=== PATIENT | male | born 1975 | race Caucasian/White ===

== ENCOUNTER 2017-04-18 10:14 | Emergency (ER) | payer SELFPAY ==
[~2017-04-18] VITALS: Ht 165.1 cm; Wt 70.3 kg
[2017-04-18 10:21] VITALS: BP 139/90
[2017-04-18 10:57] LABS: BASOPHILS # (AUTO) 0.1 /CMM (0.0-0.2); BASOPHILS % (AUTO) 0.5 % (0.0-2.0); EOSINOPHILS # (AUTO) 0.2 /CMM (0.0-0.7); EOSINOPHILS % (AUTO) 2.2 % (0.0-6.0); HEMATOCRIT 35 % (39-51); HEMOGLOBIN 11.7 g/dL (13.5-17.5); LYMPHOCYTES % (AUTO) 19.9 % (20.0-44.0); MEAN CORPUSCULAR HEMOGLOBIN 28 PG (26.0-33.0); MEAN CORPUSCULAR HGB CONC 33 g/dl (31.0-36.0); MEAN CORPUSCULAR VOLUME 85 fL (80-96); MONOCYTES # (AUTO) 0.6 /CMM (0.1-1.30); MONOCYTES % (AUTO) 6.2 % (2.0-12.0); NEUTROPHILS # (AUTO) 7.3 /CMM (1.8-8.9); NEUTROPHILS % (AUTO) 71.2 % (43.0-81.0); PLATELET COUNT (AUTO) 544 /CMM (150-450); RDW COEFFICIENT OF VARIATION 19.1 (11.5-15.0); RED BLOOD CELL COUNT(AUTO) 4.13 MIL/uL (4.5-6.0); WHITE BLOOD COUNT (AUTO) 10.2 K/uL (4.3-11.0)
[2017-04-18] MEDS ORDERED: FOLIC ACID 1 MG TABLET PO ONE (11:00)
[2017-04-18] MEDS ORDERED: THIAMINE HCL 100 MG TABLET PO ONE (11:00)
[2017-04-18 11:08] LABS: CALCIUM, SERUM 8.3 mg/dL (8.5-10.1); CREATININE 0.7 mg/dL (0.6-1.3); POTASSIUM 4.1 mmol/L (3.5-5.1)
[2017-04-18 11:14] LABS: ALBUMIN 3.1 g/dL (3.4-5.0); BILIRUBIN,TOTAL 0.1 mg/dL (0.2-1.0); TOTAL PROTEIN, SERUM 8.5 g/dL (6.4-8.2)
--- NOTE | 2017-04-18 11:20 | NUR ---
Patient eloped from facility. ER MD notified.
== END 2017-04-18 11:38 | disposition left against medical advice (07) ==
LOC: ER 10:16
DX: F10.129 Alcohol abuse with intoxication, unspecified (principal); R00.0 Tachycardia, unspecified; R41.0 Disorientation, unspecified
CPT/HCPCS: 36415; 80048; 80076; 83690; 85025; 99284; A4606; Z7610

== ENCOUNTER 2017-04-18 12:11 | Emergency (ER) | payer SELFPAY ==
[~2017-04-18] VITALS: Ht 165.1 cm; Wt 68.0 kg
--- NOTE | 2017-04-18 16:00 | NUR ---
Patient is resting comfortably in bed with eyes closed. Easily aroused. VSS
--- NOTE | 2017-04-18 17:45 | NUR ---
Pt ambulatory with a steady gait.
--- NOTE | 2017-04-18 18:09 | NUR ---
Patient discharged to home in stable condition. Written and verbal after care instructions given. Patient verbalizes understanding of instruction.
[2017-04-18 18:10] VITALS: BP 131/77
== END 2017-04-18 18:10 | disposition home or self-care (01) ==
LOC: ER 12:11
DX: T51.91XA Toxic effect of unspecified alcohol, accidental (unintentional), initial encounter (principal); D64.9 Anemia, unspecified; R41.0 Disorientation, unspecified; Y92.89 Other specified places as the place of occurrence of the external cause
CPT/HCPCS: 36415; 99283; A4606; G0480; Z7610